=== PATIENT | female | born 1990 | race Caucasian/White ===

== ENCOUNTER 2019-04-16 18:04 | Emergency (ER) | payer SELFPAY ==
[2019-04-16] MEDS ORDERED: NORMAL SALINE 1000 ML 1,000 ML IV ONE (18:43)
[2019-04-16] MEDS ORDERED: MORPHINE SULFATE 10 MG/ML INJ IV ONE (18:43)
[2019-04-16] MEDS ORDERED: ONDANSETRON HCL INJ/PF 4 MG/2 ML SDV IV ONE (18:43)
[2019-04-16 18:45] LABS: ABSOLUTE BASOPHILS # (AUTO) 0.1 10^3/uL (0.0-0.2); ABSOLUTE EOSINOPHILS # (AUTO) 0.2 10^3/uL (0.0-0.6); ABSOLUTE LYMPHOCYTES (AUTO) 2.3 10^3/uL (0.5-4.7); ABSOLUTE MONOCYTES (AUTO) 1.2 10^3/uL (0.1-1.4); ABSOLUTE NEUT (AUTO) 15.8 10^3/uL (1.7-8.2); BASOPHILS % (AUTO) 0.4 % (0-2); EOSINOPHILS % (AUTO) 1.1 % (0-6); HEMATOCRIT 43.9 % (36.0-47.0); HEMOGLOBIN 14.9 g/dL (12.0-15.5); LYMPHOCYTES % (AUTO) 11.6 % (13-45); MEAN CORPUSCULAR HEMOGLOBIN 28.4 pg (27.0-33.4); MEAN CORPUSCULAR HGB CONC 33.9 g/dL (32.0-36.0); MEAN CORPUSCULAR VOLUME 84 fl (80-97); MONOCYTES % (AUTO) 6.2 % (3-13); PLATELET COUNT 314 10^3/uL (150-450); RED BLOOD COUNT 5.23 10^6/uL (3.72-5.28); RED CELL DISTRIBUTION WIDTH 13.6 % (11.5-14.0); SEGMENTED NEUTROPHILS % (AUTO) 80.7 % (42-78); TOTAL CELLS COUNTED % (AUTO) 100 %; WHITE BLOOD COUNT 19.6 10^3/uL (4.0-10.5)
[2019-04-16 19:05] LABS: ALBUMIN 4.3 g/dL (3.5-5.0); ALKALINE PHOSPHATASE 87 U/L (38-126); ANION GAP 10 (5-19); ASPARTATE AMINO TRANSFERASE 34 U/L (14-36); BILIRUBIN,DIRECT 0.3 mg/dL (0.0-0.4); BILIRUBIN,TOTAL 0.7 mg/dL (0.2-1.3); BLOOD UREA NITROGEN 16 mg/dL (7-20); CALCIUM 9.5 mg/dL (8.4-10.2); CARBON DIOXIDE 25 mmol/L (22-30); CHLORIDE 103 mmol/L (98-107); GLUCOSE 122 mg/dL (75-110); TOTAL PROTEIN 7.2 g/dL (6.3-8.2)
--- NOTE | 2019-04-16 19:12 | ER Document Report ---
Entered by LI CLEVELAND SCRIBE 04/16/19 1843 Acting as scribe for:RAMANDEEP MADDEN MD ED GI/ - General Chief Complaint: Abdominal Pain Stated Complaint: ABDOMINAL CRAMPS Time Seen by Provider: 04/16/19 18:35 Mode of Arrival: Ambulatory Information source: Patient Notes: 29 year old female that presents to the emergency department today with complaints of vaginal bleeding with associated abdominal cramping. Patient states the bleeding started x2 days ago with only mild cramping. The cramping has become more severe and the bleeding has become heavier since onset. Patient reports the bleeding is dark red with large amounts of clotting. Patient states she has not had a period in 14 years, since age 15, without explanation. Patient reports she has never been worked up for why this is happening. Patient denies a history of PCOS. TRAVEL OUTSIDE OF THE [place] IN LAST 30 DAYS: No - Related Data Allergies/Adverse Reactions: No Known Allergies Allergy (Verified 04/16/19 18:05) Past Medical History - General Information source: Patient - Social History Smoking Status: Current Every Day Smoker Cigarette use (# per day): Yes - 1/2 ppd Frequency of alcohol use: None Drug Abuse: None Occupation: [employer] Lives with: Family Family History: Reviewed & Not Pertinent - Immunizations Hx Diphtheria, Pertussis, Tetanus Vaccination: Yes Review of Systems - Review of Systems Constitutional: No symptoms reported EENT: No symptoms reported Cardiovascular: No symptoms reported Respiratory: No symptoms reported Gastrointestinal: See HPI, Abdominal pain, Nausea, Vomiting Genitourinary: No symptoms reported Female Genitourinary: See HPI, Vaginal bleeding Musculoskeletal: No symptoms reported Skin: No symptoms reported Hematologic/Lymphatic: No symptoms reported Neurological/Psychological: No symptoms reported -: Yes All other systems reviewed and negative Physical Exam - Vital signs Vitals: Temp Pulse Resp BP Pulse Ox 97.7 F 91 25 H 144/89 H 100 04/16/19 18:10 04/16/19 18:10 04/16/19 18:10 04/16/19 18:10 04/16/19 18:10 - Notes Notes: Physical Exam: General: Alert, appears uncomfortable. HEENT: Normocephalic. Atraumatic. PERRL. Extraocular movements intact. Oropharynx clear. Neck: Supple. Non-tender. Respiratory: No respiratory distress. Clear and equal breath sounds bilaterally. Cardiovascular: Regular rate and rhythm. Abdominal: Morbidly obese. Suprapubic abdominal tenderness with palpation. No distension. Normal Bowel Sounds. Back: Non-tender. No deformity or step off. Extremities: Moves all four extremities. Upper extremities: Normal inspection. Normal ROM. Lower extremities: Normal inspection. No edema. Normal ROM. Neurological: Normal cognition. AAOx4. Normal speech. Psychological: Normal affect. Normal Mood. Skin: Warm. Dry. Normal color. Course - Vital Signs Vital signs: Temp Pulse Resp BP Pulse Ox 97.7 F 91 25 H 144/89 H 100 04/16/19 18:10 04/16/19 18:10 04/16/19 18:10 04/16/19 18:10 04/16/19 18:10 - Laboratory Result Diagrams: 04/16/19 18:32 04/16/19 18:32 Laboratory results interpreted by me: 04/16/19 04/16/19 18:32 18:32 WBC 19.6 H Seg Neutrophils % 80.7 H Lymphocytes % 11.6 L Absolute Neutrophils 15.8 H Glucose 122 H - Diagnostic Test Radiology reviewed: Image reviewed, Reports reviewed - Ultrasound shows endometrial stripe 1.3 cm, complex fluid in the uterus consistent with blood. Discharge - Discharge Clinical Impression: Pelvic cramping, Dysfunctional uterine bleeding Condition: Stable Disposition: HOME, SELF-CARE Additional Instructions: There is no clear explanation for the bleeding and cramping you are having today. Your ultrasound shows a thickened endometrium with blood in the uterus. Your physical exam shows what appears to be tissue in the cervical os. Take ibuprofen 800 mg every 8 hours for pelvic pain and cramps. Take medication as dispensed tonight for pain that is not controlled with the ibuprofen. [facility] Thursday to schedule an appointment for Thursday or Thursday. RETURN TO THE EMERGENCY ROOM IF ANY NEW OR WORSENING SYMPTOMS. Referrals: [facility] [Provider Group] - 04/18/19 Scribe Attestation: 04/16/19 19:12 I personally performed the services described in the documentation, reviewed and edited the documentation which was dictated to the scribe in my presence, and it accurately records my words and actions. I personally performed the services described in the documentation, reviewed and edited the documentation which was dictated to the scribe in my presence, and it accurately records my words and actions.
--- NOTE | 2019-04-16 19:36 | RADIOLOGY REPORT (SQ) ---
EXAM DESCRIPTION: U/S NON-OB PELVIS TV W/O DOP COMPLETED DATE/TIME: 04/16/2019 7:23 pm REASON FOR STUDY: LMP 15yrs, severe pelvic cramps with clots COMPARISON: None. TECHNIQUE: Dynamic and static grayscale images acquired of the pelvis via transvaginal approach and recorded on PACS. Additional selected color Doppler and spectral images recorded. LIMITATIONS: None. FINDINGS: UTERUS: Contour normal. No mass. ENDOMETRIAL STRIPE: Normal thickness demonstrating heterogeneous echogenicity. At least 1 image demo nstrates blood flow within the endometrium. CERVIX: No nabothian cysts. RIGHT OVARY AND DOPPLER: Normal size. No worrisome masses. Normal arterial vascular flow without evid ence for torsion. LEFT OVARY AND DOPPLER: Ovary not visualized. FREE FLUID: None noted. OTHER: No other significant finding. MEASUREMENTS: UTERUS: 10.8 x 4.4 x 4.2 cm ENDOMETRIAL STRIPE: 1.3 cm RIGHT OVARY: 3.1 x 2.8 x 2.8 cm LEFT OVARY: Not visualized. IMPRESSION: Given patient's presenting symptoms, heterogeneous appearing endometrium likely represen ts blood products. The appearance of possible blood flow within the endometrium may represent an end ometrial polyp. The left ovary is not visualized. TECHNICAL DOCUMENTATION: JOB ID: [id number] [employer]- All Rights Reserved Rev Reading location - IP/workstation name: [email or web address]
[2019-04-16] MEDS ORDERED: KETOROLAC TROMETHAMINE INJ/PF 30 MG/1 ML SDV IV ONE (20:02)
[2019-04-16] MEDS ORDERED: HYDROCODONE/ACETAMINOPHEN 5-325 MG (6 TAB/ER DISP) PO PRN (20:59)
[2019-04-16 21:18] LABS: APPEARANCE,URINE CLEAR; BILIRUBIN,URINE NEGATIVE (NEGATIVE); COLOR,URINE YELLOW; GLUCOSE, URINE NEGATIVE (NEGATIVE); KETONES,URINE TRACE mg/dL (NEGATIVE); LEUKOCYTE ESTERASE,URINE NEGATIVE (NEGATIVE); NITRITE,URINE NEGATIVE (NEGATIVE); PROTEIN,URINE NEGATIVE (NEGATIVE); UROBILINOGEN,URINE NEGATIVE mg/dL (<2.0)
[2019-04-16 21:26] VITALS: BP 125/78
== END 2019-04-16 21:26 | disposition home or self-care (01) ==
LOC: ER 18:04
DX: N93.8 Other specified abnormal uterine and vaginal bleeding (principal); R10.2 Pelvic and perineal pain; R10.9 Unspecified abdominal pain; F17.210 Nicotine dependence, cigarettes, uncomplicated
CPT/HCPCS: 99284; 96361; 96374; 96375; 36415; 83690; 84703; 85025; 80053; 81001; 76830; J1885; J2270; J2405; J7030

== ENCOUNTER → 2020-01-17 | Outpatient (CLI) | payer SELFPAY ==
--- NOTE | 2020-01-17 15:18 | RADIOLOGY REPORT (SQ) ---
EXAM DESCRIPTION: U/S [id number] TRNABD 1GES W/ODOP IMAGES COMPLETED DATE/TIME: 01/17/2020 3:08 pm REASON FOR STUDY: Z34.01 ENCNTR FOR SUPRVSN OF NORMAL FIRST PREG, FIRST TRIMESTER Z34.01 ENCNTR FOR SUPRVSN OF NORMAL FIRST PREG, FIRST TRIMES COMPARISON: None. TECHNIQUE: Transabdominal static and realtime grayscale images acquired of the pelvis. Additional se lected spectral and color Doppler images recorded. All images stored on PACs. bHCG: Not available. CLINICAL DATES: 12 weeks 0 days. LIMITATIONS: None. FINDINGS: FETUS: Single Living intrauterine . ULTRASOUND EGA: 11 weeks 2 days. ULTRASOUND RADHIKA: 08/05/2020 EFW: Not applicable less than 20 weeks. CRL: Visualized. FHR: 171. Beats per minute. SURVEY: Too early to assess. AMNIOTIC FLUID: Adequate amount. PLACENTA: Not yet developed due to early gestation. SUBCHORIONIC BLEED: No. SIZE OF BLEED: Not applicable. UTERUS: No masses. No anomalies. CERVICAL LENGTH: 2.6 cm. Closed. RIGHT ADNEXA: Normal ovary with normal vascular flow. No adnexal free fluid. No adnexal masses. LEFT ADNEXA: Ovary not identified due to poor acoustical window. No adnexal free fluid. No adnexal masses. FREE FLUID: None. OTHER: No other significant finding. IMPRESSION: LIVING INTRAUTERINE . EGA 11 WEEKS 2 DAYS. Trimester of : First trimester - 0 to 13 weeks. TECHNICAL DOCUMENTATION: JOB ID: [id number] 2010 [employer]- All Rights Reserved Reading location - IP/workstation name: [email or web address]
== END ==
LOC: RAD 14:30
PROVIDERS: ATTEND Midwife
DX: Z34.01 Encounter for supervision of normal first pregnancy, first trimester (principal)
CPT/HCPCS: 76801

== ENCOUNTER → 2020-03-13 | Outpatient (CLI) | payer SELFPAY ==
--- NOTE | 2020-03-13 14:34 | RADIOLOGY REPORT (SQ) ---
EXAM DESCRIPTION: U/S OB 14+ TRNABD 1GES W/O DOP IMAGES COMPLETED DATE/TIME: 03/13/2020 1:51 pm REASON FOR STUDY: ENCTR FOR SUPERVISION OF NORMAL FIRST , 2ND TRIMESTER (Z34.02) Z34.02 EN CNTR FOR SUPRVSN OF NORMAL FIRST PREG, SECOND TRIME COMPARISON: None. TECHNIQUE: Static and Dynamic grayscale imaging performed of gravid uterus using transabdominal appr oach. Additional selected color Doppler and spectral images recorded. All stored on PACS. LIMITATIONS: None. FINDINGS: FETUSES SEEN:1 EGA: 19 weeks 2 days Calculated using BPD,FL,HC,AC documented on images. 5 days discrepancy with zaire es RADHIKA: 08/05/2020 EFW: 297+/- 44 grams PERCENTILE: Not applicable. Fetus less than or equal to 20 weeks gestation. LVP: 4.1 x 5.3 cm PLACENTA: Posterior grade 1 PRESENTATION: Cephalic. ANATOMY: HEART RATE: 160 beats per minute. FOUR CHAMBER HEART: Visualized. THREE VESSEL CORD: Yes. CORD INSERTION: Visualized. KIDNEYS AND BLADDER: Visualized. Appear normal. STOMACH: Visualized. Appears normal. SPINE: Normal as visualized. BRAIN AND LATERAL VENTRICLES: Visualized. Appear normal. OTHER: No other significant finding. MATERNAL ADNEXA: Maternal ovaries not visualized. CERVICAL LENGTH: 2.6 cm. Closed. OTHER: No other significant finding. IMPRESSION: LIVING INTRAUTERINE . ESTIMATED GESTATIONAL AGE 19 weeks 2 days NO VISUALIZED ANOMALIES. Trimester of : Second trimester - 13 weeks 1 day to 27 weeks 6 days. TECHNICAL DOCUMENTATION: JOB ID: [id number] 2010 [email or web address]- All Rights Reserved Reading location - IP/workstation name: [email or web address]
== END ==
LOC: RAD 12:59
PROVIDERS: ATTEND Midwife
DX: Z34.02 Encounter for supervision of normal first pregnancy, second trimester (principal); Z3A.19 19 weeks gestation of pregnancy
CPT/HCPCS: 76805

== ENCOUNTER 2020-08-08 11:06 | Outpatient (CLI) | payer MEDICAID ==
--- NOTE | 2020-08-08 11:56 | Non Stress Test Report ---
Non Stress Test Datetime Report Generated by CPN: 08/08/2020 11:56 INDICATION Indication for Study (NST) Other: Repeat NST from [facility] VITAL SIGNS Temperature - NST: 97.8 Pulse - NST: 80 RESP - NST: 16 NBPSYS NST: 130 NBPDIA NST: 78 MONITORING Monitor Explained: Monitor Explained; Test Explained; Patient Verbalized Understanding Time on Monitor: 08/08/2020 11:18 Time off Monitor: 08/08/2020 11:44 NST Duration: 26 NST INTERVENTIONS NST Interventions: PO Hydration Physician Notified NST: C. Kapoor, CNM BABY A: [id number] BABY A Movement : Present Contraction Frequency : None FHR Baseline : 130 Accelerations : 15X15 Decelerations : None Variability : Moderate 6-25bpm NST Review: Meets Criteria for Reactive NST NST Review and Verified By : Emmie Connor RN NST Results: Reactive NST REPORT Report Trigger: Send Report
== END 2020-08-08 11:47 | disposition home or self-care (01) ==
LOC: LC 11:06
PROVIDERS: ATTEND Obstetrics & Gynecology
DX: O47.1 False labor at or after 37 completed weeks of gestation (principal); Z3A.39 39 weeks gestation of pregnancy
CPT/HCPCS: 59025

== ENCOUNTER 2020-08-08 19:27 | Inpatient (IN) | payer MEDICAID ==
[2020-08-08] MEDS ORDERED: DINOPROSTONE 10 MG VAGINAL INSERT.SR PV PRN (19:43)
[2020-08-08] MEDS ORDERED: RINGERS SOLUTION,LACTATED 1,000 ML IV ONE (19:43)
--- NOTE | 2020-08-08 20:00 | Admission Physical ---
Datetime Report Generated by CPN: 08/08/2020 19:59 CURRENT ADMISSION Chief Complaint: Scheduled Induction of Labor Indication for Induction: Post Dates Admit Impression : Postterm, Intrauterine Admit Plan: Admit to Unit ALLERGIES Medication Allergies: No Medication Allergies: No Known Allergies (08/08/2020) Latex: No Latex Allergies OBSTETRICAL HISTORY EDC: 07/31/2020 00:00 : 1 Para: 0 Term: 0 : 0 SAB: 0 IAB: 0 Ectopic: 0 Livin Cesareans: 0 VBACs: 0 Multiple Births: 0 PHYSICAL EXAM General: Normal HEENT: Normal Neurologic: Normal Thyroid: Normal Heart: Normal Lungs: Normal Breast: Deferred Back: Normal Abdomen: Normal Genitourinary Exam: Normal Extremities: Normal DTRs: Normal Pelvic Type: Adequate Vital Signs: Reviewed VAGINAL EXAM Dilatation: 0 Effacement: 0 Station: -2 FETUS A EGA: 41.1 Monitoring: External US FHR- Baseline: 130 Variability: Moderate 6-25bpm Decelerations: None FHR Category: Category I Presentation: Vertex Admit Comment: Admit for induction of labor INFORMED CONSENT Signature: with User ID: [email or web address]
[2020-08-08] MEDS: RINGERS SOLUTION,LACTATED 1,000 ML IV PRN (20:10)
[2020-08-08] MEDS ORDERED: LIDOCAINE 1% INJ-PF (10 MG/ML) 30 ML SDV ONE (20:35)
[2020-08-08] MEDS ORDERED: OXYTOCIN/0.9 % SODIUM CHLORIDE 30 UNIT/500 ML RTUINJ ONE (20:35)
[2020-08-08] MEDS ORDERED: OXYTOCIN 10 UNIT/ML VIAL ONE (20:35)
[2020-08-08] MEDS ORDERED: MISOPROSTOL 0.2 MG TABLET ONE (20:35)
[2020-08-08] MEDS ORDERED: DINOPROSTONE 10 MG VAGINAL INSERT.SR ONE (20:35)
[2020-08-08 20:50] LABS: HEMATOCRIT 35.5 % (36.0-47.0); MEAN CORPUSCULAR HGB CONC 33.7 g/dL (32.0-36.0); MEAN CORPUSCULAR VOLUME 83 fl (80-97); PLATELET COUNT 263 10^3/uL (150-450); RED BLOOD COUNT 4.27 10^6/uL (3.72-5.28); RED CELL DISTRIBUTION WIDTH 15.3 % (11.5-14.0); WHITE BLOOD COUNT 17.9 10^3/uL (4.0-10.5)
[2020-08-08 21:05] LABS: APPEARANCE,URINE CLEAR; BILIRUBIN,URINE NEGATIVE (NEGATIVE); COLOR,URINE YELLOW; GLUCOSE, URINE NEGATIVE (NEGATIVE); KETONES,URINE NEGATIVE (NEGATIVE); LEUKOCYTE ESTERASE,URINE NEGATIVE (NEGATIVE); NITRITE,URINE NEGATIVE (NEGATIVE); PROTEIN,URINE NEGATIVE (NEGATIVE); URINE SPECIFIC GRAVITY 1.013; UROBILINOGEN,URINE NEGATIVE mg/dL (<2.0)
[2020-08-08 21:22] LABS: URINE AMPHETAMINES SCREEN NEGATIVE; URINE BARBITURATES SCREEN NEGATIVE; URINE BENZODIAZEPINES SCREEN NEGATIVE; URINE COCAINE SCREEN NEGATIVE; URINE MARIJUANA (THC) SCREEN NEGATIVE; URINE METHADONE SCREEN NEGATIVE; URINE PHENCYCLIDINE SCREEN NEGATIVE
[2020-08-09] MEDS: RINGERS SOLUTION,LACTATED 1,000 ML IV PRN ×4 (03:19→22:59)
[2020-08-09] MEDS ORDERED: OXYTOCIN/0.9 % SODIUM CHLORIDE 30 UNIT/500 ML RTUINJ IV PRN (09:57)
[2020-08-09] MEDS ORDERED: PROMETHAZINE HCL INJ 25 MG/1 ML VIAL ONE (11:44)
[2020-08-09] MEDS ORDERED: NALBUPHINE HCL INJ 10 MG/1 ML AMPULE ONE (11:44)
[2020-08-09] MEDS ORDERED: PROMETHAZINE HCL INJ 25 MG/1 ML VIAL IV ONE (11:47)
[2020-08-09] MEDS ORDERED: NALBUPHINE HCL INJ 10 MG/1 ML AMPULE IV ONE (11:47)
[2020-08-09] MEDS ORDERED: NALBUPHINE HCL INJ 10 MG/1 ML AMPULE IM ONE (11:47)
[2020-08-09 11:56] LABS: ABSOLUTE BASOPHILS # (AUTO) 0.1 10^3/uL (0.0-0.2); ABSOLUTE EOSINOPHILS # (AUTO) 0.3 10^3/uL (0.0-0.6); ABSOLUTE LYMPHOCYTES (AUTO) 1.9 10^3/uL (0.5-4.7); ABSOLUTE MONOCYTES (AUTO) 1.2 10^3/uL (0.1-1.4); ABSOLUTE NEUT (AUTO) 12.5 10^3/uL (1.7-8.2); BASOPHILS % (AUTO) 0.8 % (0-2); EOSINOPHILS % (AUTO) 2.1 % (0-6); HEMATOCRIT 34.7 % (36.0-47.0); HEMOGLOBIN 11.7 g/dL (12.0-15.5); MEAN CORPUSCULAR HGB CONC 33.5 g/dL (32.0-36.0); MEAN CORPUSCULAR VOLUME 84 fl (80-97); MONOCYTES % (AUTO) 7.6 % (3-13); PLATELET COUNT 264 10^3/uL (150-450); RED BLOOD COUNT 4.16 10^6/uL (3.72-5.28); RED CELL DISTRIBUTION WIDTH 15.3 % (11.5-14.0); SEGMENTED NEUTROPHILS % (AUTO) 77.5 % (42-78); TOTAL CELLS COUNTED % (AUTO) 100 %; WHITE BLOOD COUNT 16.1 10^3/uL (4.0-10.5)
[2020-08-09] MEDS ORDERED: EPHEDRINE SULFATE INJ 50 MG/1 ML AMPULE ONE (15:33)
[2020-08-09] MEDS ORDERED: ROPIVACAINE HCL 0.2% INJ/PF (2 MG/ML) 20 ML SDV ONE (15:33)
[2020-08-09] MEDS ORDERED: FENTANYL/BUPIVACAINE/NS/PF 300 MCG/150 ML RTUINJ EPI ONE (15:33)
--- NOTE | 2020-08-09 17:27 | L&D Progress Notes ---
PROGRESS NOTES Datetime Report Generated by CPN: 08/09/2020 17:26 PROGRESS NOTE Impression: Normal Progression of Labor Procedures: Intrauterine Pressure Catheter Plan: Continue Present Management Vital Signs : Reviewed Comment: Pt got epidural, RN trying to reposition to assist with decsent of head but unable to trace contractions d/t body habitus. IUPC placed easliy. Discussed r/b of IUPC with patient. Report to Dr. Griffith unchanged cervix, molding noted. VAGINAL EXAM Dilatation: 0 Effacement: 0 Station: -2 LAST VAGINAL EXAM-NURSING Nursing Exam Dilitation: 4-5 Nursing Exam Effacement: 60 Nursing Exam Station: -2 Nursing Exam Contractions: Edmond schmidt, CNM inserted IUPC FETUS A FHR - Baseline: 140 Variability: Moderate 6-25bpm Accelerations: 15X15 FHR Category: Category I : 41.0 Presentation: Vertex SIGNATURE SIGNATURE: [id number];14,[id number];13,[id number] Assignment: Mayra Griffith MD Signature: with User ID: [email or web address] : with User ID: [email or web address]
[2020-08-10] MEDS ORDERED: CEFAZOLIN 2 GM/D5W RTU 2 GM/50 ML RTUPB IV ONE (06:10)
[2020-08-10] MEDS ORDERED: CITRIC ACID/SODIUM CITRATE ORAL SOLN 15 ML UDCUP ONE (06:10)
[2020-08-10] MEDS ORDERED: AZITHROMYCIN INJ 500 MG VIAL IV ONE (06:15)
[2020-08-10] MEDS ORDERED: OXYTOCIN 10 UNIT/ML VIAL ONE (06:47)
[2020-08-10] MEDS ORDERED: ACETAMINOPHEN 1,000 MG/100 ML RTUPB IV ONE (06:47)
[2020-08-10] MEDS ORDERED: LIDOCAINE 2% INJ-PF (20 MG/ML) 10 ML AMPUL ONE ×2 (06:47→07:33)
[2020-08-10] MEDS ORDERED: FENTANYL CITRATE INJ/PF 100 MCG/2 ML AMPUL ONE ×2 (07:58→08:23)
[2020-08-10] MEDS ORDERED: KETAMINE HCL INJ 500 MG/10 ML VIAL ONE (08:03)
[2020-08-10] MEDS ORDERED: OXYTOCIN/0.9 % SODIUM CHLORIDE 30 UNIT/500 ML RTUINJ IV PRN (08:34)
[2020-08-10] MEDS ORDERED: PROMETHAZINE HCL INJ 25 MG/1 ML VIAL IV PRN (08:34)
[2020-08-10] MEDS ORDERED: SIMETHICONE 80 MG TAB.CHEW PO PRN (08:34)
[2020-08-10] MEDS ORDERED: ACETAMINOPHEN 325 MG TABLET PO PRN (08:34)
[2020-08-10] MEDS ORDERED: OXYCODONE-ACETAMINOPHEN 5-325 MG TABLET PO PRN (08:34)
[2020-08-10] MEDS ORDERED: HYDROMORPHONE HCL INJ/PF 2 MG/ML AMPULE IV PRN (08:34)
[2020-08-10] MEDS ORDERED: RINGERS SOLUTION,LACTATED 1,000 ML IV PRN (08:34)
[2020-08-10] MEDS ORDERED: ACETAMINOPHEN 1,000 MG/100 ML RTUPB IV PRN (08:34)
[2020-08-10] MEDS ORDERED: DIPH/PERTUSS(ACELL)/TETANUS VAC/PF 0.5 ML SYR (>=10YO) IM PRN (08:34)
[2020-08-10] MEDS ORDERED: MEASLES,MUMPS&RUBELLA VACC/PF 0.5 ML VIAL SUBCUT PRN (08:34)
[2020-08-10] MEDS ORDERED: MORPHINE SULFATE 10 MG/ML INJ ONE ×2 (08:35→09:05)
--- NOTE | 2020-08-10 09:00 | Operative Report ---
Operative Report DATE OF SURGERY: 08/10/20 PREOPERATIVE DIAGNOSIS: Arrest of descent. Non-reassuring heart tracing in labor until to augment. Unwanted fertilty POSTOPERATIVE DIAGNOSIS: Same as above OPERATION: Primary section and bilateral tubal ligation SURGEON: DANNY ROUSE ANESTHESIA: Spinal TISSUE REMOVED OR ALTERED: Placenta and bilateral fallopian tubes COMPLICATIONS: Npne ESTIMATED BLOOD LOSS: 750cc INTRAOPERATIVE FINDINGS: Normal appearing uterus, bilateral fallopian tubes and ovaries PROCEDURE: IV fluids: per anesthesia record Urinary output: 300 cc Position: To recovery room in stable condition Description of procedure: The patient was taken to the operating room and spinal anesthesia was administered and found to be adequate. She was then placed on the OR table in the supine position with a slight leftward tilt. Patient was prepped and draped in usual sterile fashion. Ancef 2 gms was given IV prior to the procedure for infection prophylaxis along with azithromycin 500mg. Timeout was taken. A Pfannenstiel skin incision was then made approximately 3 cm above the pubic symphysis and carried down to level the rectus fascia. The rectus fascia was then nicked in the midline with a scalpel and the fascial incision was extended laterally with use of curved Bush scissors. The rectus fascia was then grasped with 2 Kocker clamps elevated and the underlying rectus muscle was dissected off both bluntly and sharply. Any bleeding controlled with cautery. The rectus muscles were then split in the midline and the peritoneum was entered. The peritoneal incision was then extended by manually stretching the peritoneum. The bladder blade was positioned. The bladder was noted to be out of harm's way. A scalpel was then used in the lower uterine for the hysterotomy, slowly until amniotomy was obtained a large amount of fluid was noted. The uterine incision was then manually stretched. The was noted to be in vertex postion but engaged in the pelvis. The head was delivered with some difficulty requiring a hand from assistant hall director through the vagina sterilely and a Kiwi vacuum to assist. The Kiwi was used during 1 push from the assistant hall director giving fundal pressure and no pop offs were encountered.. The shoulders and the rest of the body followed immediately. The cord was cut clamped and the was handed off to the nurse awaiting. was crying prior to hand off. The placenta was manually delivered. Using a lap gauze the uterus was cleared of all clots and debris. The ted retractor was placed and a bladder blade was repositioned. The uterine incision was then closed with 0 Chromic suture in a running locked fashion. A second layer of the same suture was used in a running locked imbricated fashion. The uterine incision was inspected and noted to be hemostatic. Retractor was removed. The posterior aspect of the uterus was then inspected and anatomy was seen as above. The right fallopian tube was identified and traced to the fimbriated end. Portage clamp x2 was used to elevate a segment of the tube where the mesosalpinx appeared free of any vasculature. A Bovie was used to open the mesosalpinx below the Dayanna clamps. A free tie was placed x2 near each Dayanna clamp. Blanching noted and hemostasis. The left f allopian tube was identified and traced to the fimbriated end. Portage clamp x2 was used to elevate a segment of the tube where the mesosalpinx appeared free of any vasculature. A Bovie was used to open the mesosalpinx below the Dayanna clamps. A free tie was placed x2 near each Portage clamp. Blanching noted and hemostasis. The uterus was returned to its normal anatomic position within the abdominal cavity. Warm saline irrigation was used to clear all clots and debris from the abdomen. The uterine incision was inspected once more and noted to remain hemostatic. The bladder blade was removed and the peritoneum was closed with 2-0 chromic in a running fashion. The rectus muscles were then reapproximated and the rectus fascia was closed with a #0 looped PDS in a running fashion. The sub cutaneous tissue was then inspected and any bleeding was controlled with Bovie electrocautery. The subcutaneous tissue was then closed with 2-0 Plain Gut suture in a running fashion. The skin was then closed with 3-0 Monocryl in a running subcuticular fashion. The skin incision was then clean dried and Dermabond was applied over the skin incision. All instrument sponge and needle counts were correct x3 for the procedure the patient tolerated the procedure well. She will proceed to recovery room in stable condition
--- NOTE | 2020-08-10 09:48 | Birth Certificate Data ---
Cert Data Datetime Report Generated by CPN: 08/10/2020 09:48 CERTIFICATE DATA Delivery Provider: Mayra Griffith MD (08/10/2020 08:00:Bianca Katz RN) 47a. Care: Yes (08/08/2020 11:24:Nivia Connor RN) 47b. Date of First Visit: 01/10/2020 00:00 (08/08/2020 11:24:Zara Miguel RN) 47c. Date of Last Visit: 08/08/2020 00:00 (08/08/2020 11:24:Zara Miguel RN) 47d. Number of Visits: 14 (08/08/2020 11:24:Zara Miguel RN) 48a. Number of Prev Live Births: 0 (08/08/2020 11:24:Nivia Connor RN) 48b. Now Livin (08/08/2020 11:24:Mary Kay Irwin RN) 48c. Live Births Now : 0 (08/08/2020 11:24:QS system process) 48e. Losses: 0 (08/08/2020 11:24:Nivia Connor RN) RISK FACTORS IN THIS 49a. Diabetes: No (08/08/2020 11:24:Zara Miguel RN) 49b. Hypertension: No (08/08/2020 11:24:Zara Miguel RN) 49c. Previous Births: 0 (08/08/2020 11:24:Mary Kay Irwin RN) 49d. Stillborns: No (08/08/2020 11:24:Zara Miguel RN) 49d. IUGR: No (08/08/2020 11:24:Zara Miguel RN) 49e. Infertility Treatment: No (08/08/2020 11:24:Zara Miguel RN) 49f. Previous Cesareans: 0 (08/08/2020 11:24:Nivia Connor RN) Mother's Height 50b. Height Inches: 65 (08/08/2020 19:42:QS system process) Mother's Weight 51a. Pre- Weight (lbs): 288 (08/08/2020 11:24:Nivia Connor RN) 51b. Weight at Delivery (lbs): 312 (08/09/2020 14:05:QS system process) 52. Dt Last Normal Menses Began: 10/25/2019 00:00 (08/08/2020 11:24:December GRIS Ravi) Infections Present/Treated 53a. Gonorrhea: Yes (08/08/2020 11:24:Zara Miguel RN) Results this Hospital Visit : Negative (08/08/2020 11:24:Mary Kay Irwin RN) 53b. Syphilis: No (08/08/2020 11:24:Zara iMguel RN) Results this Hospital Visit: NONREACTIVE (08/08/2020 20:39:QS system process) 53c. Chlamydia: Yes (08/08/2020 11:24:Zara Miguel RN) Results this Hospital Visit: Negative (08/08/2020 11:24:Mary Kay Irwin RN) 53d. Hepatitis B: No (08/08/2020 11:24:Zara Miguel RN) Results this Hospital Visit: Negative (08/08/2020 11:24:Nivia Connor RN) 53e. Hepatitis C: Negative (08/08/2020 11:24:Nivia Connor RN) 53h. Mother Tested for HBsAG: Yes (08/08/2020 11:24:Nivia Connor RN) 53i. Date Tested: 01/24/2020 00:00 (08/08/2020 11:24:Nivia Connor RN) 53j. Test Result: Negative (08/08/2020 11:24:Nivia Connor RN) Obstetric Procedures 54a, b, c. Obstetric Procedures: Ultrasound; NST (08/08/2020 11:24:Zara Miguel RN) Cigarette Smoking Cigarette Smoking: Never Smoker. [id number] (08/08/2020 11:24:Zara Miguel RN) 55a. 3 Months Before Preg - Ci (08/08/2020 11:24:December GRIS Ravi) 55b. 1st Trimester of Preg- Ci (08/08/2020 11:24:December GRIS Ravi) 55c. 2nd Trimester of Preg- Ci (08/08/2020 11:24:Paige Ravi RN) 55d. 3rd Trimester of Preg- Ci (08/08/2020 11:24:Paige Ravi RN) Onset of Labor 56a. PROM >12 Hrs: 18.28 (08/08/2020 11:24:QS system process) 57a. Induction of Labor: Induction (08/08/2020 11:24:Paige Ravi RN) 57a. Induction of Labor: Cervidil (08/08/2020 20:50:Zara Miguel RN) 57c. Non-Vertex Presentation A: Vertex (08/08/2020 11:24:Mayra Griffith MD) 57d. Steroids - Lung Mat: None (08/08/2020 11:24:Paige Ravi RN) 57d. Steroids - Lung Mat: Not Applicable (08/08/2020 11:24:Paige Ravi RN) 57e. Antibiotics During Labor: 08/10/2020 07:45 (08/08/2020 11:24:Bianca Katz RN) 57f. Mat Chorio or Temp >100.4: 99.2 (08/08/2020 11:24:Bianca Katz RN) 57g. Moderate/Heavy Meconium: Clear (08/09/2020 13:38:Paige Ravi RN) 57h. Intolerance of Labor: Arrest of Descent (08/08/2020 11:24:Mayra Griffith MD) : non-reassuring heart tracing (08/08/2020 11:24:Mayra Griffith MD) : N/A (08/08/2020 11:24:Bianca Katz RN) 57i. Epidural/Spinal Anesthesia: Epidural (08/08/2020 11:24:Paige Ravi RN) Method of Delivery 58a. Forceps - Unsuccessful A: N/A (08/08/2020 11:24:Bianca Katz RN) 58b. Vacuum - Unsuccessful A: Successful (08/08/2020 11:24:Bianca Katz RN) 58c. Presentation at 58c. Presentation at - A : Vertex (08/08/2020 11:24:Mayra Griffith MD) 58c. Presentation at - A : N/A (08/08/2020 11:24:Bianca Katz RN) 58c. Presentation at - A : Cephalic (08/08/2020 11:24:Mayra Griffith MD) Final Route and Method of Del 58d. Baby A Route/Delivery: (08/08/2020 11:24:Mayra Griffith MD) 58e. Trial of Labor Attempted: No (08/08/2020 11:24:Paige Ravi RN) 58e. Trial of Labor Attempted A: N/A (08/08/2020 11:24:Paige Ravi RN) 58e. Trial of Labor Attempted B: N/A (08/08/2020 11:24:Paige Ravi RN) Maternal Morbidity 59b. 3rd or 4th Degree Lacs: None (08/08/2020 11:24:Bianca Katz RN) Birthweight Baby A: 3895 (08/08/2020 11:24:Valerie Gomez, RN) 60a. Pounds : 8 (08/08/2020 11:24:QS system process) 60b. Ounces: 9 (08/08/2020 11:24:QS system process) 61. GA at Delivery Baby A: 41.3 (08/08/2020 11:24:Bianca Sales, RN) : Late Term- 41- 41.6 Weeks (08/08/2020 11:24:QS system process) 62a. 5 Minute Baby A: 9 (08/08/2020 11:24:QS system process)
--- NOTE | 2020-08-10 09:48 | Delivery Summary ---
Del Sum A-C Datetime Report Generated by CPN: 08/10/2020 09:48 DELIVERY PERSONNEL DELIVERY PERSONNEL: [id number] Delivery Doctor:: Mayra Griffith MD NURSE OFFICE:: Edmond Scales CRNA Building Surveyor:: Bianca Katz RN Neonatal Nurse Practitioner:: NAKUL John Nursery Nurse:: Valerie Dyer RN Web Master/PERFUME MAKER: Renetta Nugent CST Web Master/PERFUME MAKER: Lety Alfonso, RN CORRECTIONAL MATERNAL INFORMATION Delivery Anesthesia: Epidural Medications After Delivery: Pitocin 30 Units in 500ml NS/D5W Estimated Blood Loss (ml): 750 Delivery QBL: 590 Maternal Complications: None Provider Comments: See operative report for details LABOR SUMMARY EDC: 07/31/2020 00:00 No. Babies in Womb: 0 Attempted: No Labor Anesthesia: Epidural LABOR INFORMATION Reason for Induction: Post Dates Cervical Ripening Agents: Cervidil Oxytocin: Induction Group B Beta Strep: Negative Antibiotics # of Doses: 2 Antibiotics Time of Last Dose: 08/10/2020 07:45 Name of Antibiotic Given: Ancef 2g and Zithromax 500mg Steroids Given: None Reason Steroids Not Administered: Not Applicable MEMBRANES Membranes Rupture Method: Artificial Rupture of Membranes: 08/09/2020 13:38 Length of Rupture (hr): 18.28 Amniotic Fluid Color: Clear Amniotic Fluid Amount: Large Amniotic Fluid Odor: Normal STAGES OF LABOR Stage 3 hr: 0 Stage 3 min: 2 VAGINAL DELIVERY Episiotomy: None Laceration #1: None Laceration Extension #1: N/A Laceration Repair: Not Applicable Sharps Count Correct: N/A CSECTION DELIVERY Primary Indication: Arrest of Descent Other Primary Indication: non-reassuring heart tracing Secondary Indication: N/A CSection Urgency: Non-Scheduled CSection Incidence: Primary Labor: Labor Elective: Nonelective CSection Incision: Lower Uterine Transverse BABY A INFORMATION Delivery Date/Time: 08/10/2020 07:55 Method of Delivery: Nurse Controlled Delivery: No Born in Route : No : N/A Forceps: N/A Vacuum Extraction: Successful Shoulder Dystocia : No ASSISTED DELIVERY BABY A Indication for Assisted Delivery: Assistance Catheter Prior to Procedure: Yes Station Vacuum/Forcep Apply: 4 Position Vacuum/Forcep Apply: Left Occipital Anterior Vacuum Number of Pulls: 1 Vacuum Number of PopOffs: 0 Reduce Pressure btwn Ctx: Yes Total Time Vacuum Applied: 15 seconds PRESENTATION/POSITION BABY A Presentation: Cephalic Cephalic Presentation: Vertex Vertex Position: Right Occipital Posterior Breech Presentation: N/A PLACENTA INFORMATION BABY A Placenta Delivery Time : 08/10/2020 07:57 Placenta Method of Delivery: Manual Removal Placenta Status: Delivered SCORES BABY A Heart Rate 1 min: >100 bpm Resp Effort 1 min: Good Cry Reflex Irritability 1 min: Cough or Sneeze or Pulls Away Muscle Tone 1 min: Active Motion Color 1 min: Blue/Pale Resuscitation Effort 1 min: Tactile Stimulation SCORE 1 MIN: 8 Heart Rate 5 min: >100 bpm Resp Effort 5 min: Good Cry Reflex Irritability 5 min: Cough or Sneeze or Pulls Away Muscle Tone 5 min: Active Motion Color 5 min: Body [place], Extremities Blue Resuscitation Effort 5 min: N/A SCORE 5 MIN: 9 INFORMATION BABY A Gestational Age at Delivery: 41.3 Gestational Status: Late Term- 41- 41.6 Weeks Outcome : Liveborn Infant Condition : Stable Sex: Male IDENTIFICATION BABY A Infant Verification Date/Time: 08/10/2020 08:01 ID Band Number: [id number] Mother's Name Verified: Yes RN Verifying : M. Sales, RN Additional Verifying Personnel: C. Blanco, RN WEIGHT/LENGTH BABY A Infant Birthweight (gm): 3895 Weight (lb): 8 Infant Weight (oz): 9 Infant Length (in): 20.50 Length (cm): 52.07 CORD INFORMATION BABY A No. Cord Vessels: 3 Nuchal Cord : N/A Cord Blood Taken: Yes-For Eval (Mom's Blood Type - or O+) Suction: Mouth ASSESSMENT BABY A Infant Complications: None Physical Findings at Delivery: Within Normal Limits Infant Respirations: Appears Normal Manager Spa/ALS Called : No Transferred To: Nursery BABY B INFORMATION : N/A SIGNATURES Signature: with User ID: Lala : with User ID: Lala
[2020-08-10] MEDS: DOCUSATE SODIUM 100 MG CAPSULE PO SCH ×2 (12:20→18:07)
[2020-08-10] MEDS: PRENATAL VITAMIN W DHA CAPSULE PO SCH (12:20)
[2020-08-10] MEDS: KETOROLAC TROMETHAMINE INJ/PF 30 MG/1 ML SDV IV SCH ×2 (13:27→21:02)
[2020-08-10] MEDS ORDERED: PHENYLEPHRINE HCL INJ/PF 10 MG/1 ML SDV ONE (14:44)
[2020-08-10] MEDS ORDERED: KETOROLAC TROMETHAMINE 60 MG/2 ML SDV ONE (14:44)
[2020-08-10] MEDS ORDERED: ONDANSETRON HCL INJ/PF 4 MG/2 ML SDV ONE (14:44)
[2020-08-10] MEDS ORDERED: NORMAL SALINE INJ/PF 0.9% 10 ML SDV ONE (14:44)
[2020-08-10] MEDS: OXYCODONE-ACETAMINOPHEN 5-325 MG TABLET PO PRN ×2 (18:07→23:25)
[2020-08-11] MEDS: OXYCODONE-ACETAMINOPHEN 5-325 MG TABLET PO PRN ×2 (03:25→13:01)
[2020-08-11] MEDS: IBUPROFEN 800 MG TABLET PO SCH ×4 (05:27→23:33)
[2020-08-11 07:33] LABS: HEMOGLOBIN 10.5 g/dL (12.0-15.5); MEAN CORPUSCULAR HEMOGLOBIN 29.3 pg (27.0-33.4); MEAN CORPUSCULAR HGB CONC 34.9 g/dL (32.0-36.0); MEAN CORPUSCULAR VOLUME 84 fl (80-97); PLATELET COUNT 224 10^3/uL (150-450); RED BLOOD COUNT 3.56 10^6/uL (3.72-5.28); RED CELL DISTRIBUTION WIDTH 15.3 % (11.5-14.0); WHITE BLOOD COUNT 14.8 10^3/uL (4.0-10.5)
[2020-08-11] MEDS: PRENATAL VITAMIN W DHA CAPSULE PO SCH (09:44)
[2020-08-11] MEDS: DOCUSATE SODIUM 100 MG CAPSULE PO SCH ×2 (09:44→17:56)
--- NOTE | 2020-08-11 12:14 | PDOC PROGRESS REPORT ---
Subjective-OB Progress Note for:: 08/11/20 Subjective: Pt doing well, no complaints. States pain is controlled, voiding w/o difficulty, reg diet, light bleeding w/o clots, and is passing flatus. Physical Exam (OB) Vital Signs: Temp Pulse Resp BP Pulse Ox 97.5 F 82 18 115/67 98 08/11/20 11:02 08/11/20 11:02 08/11/20 11:02 08/11/20 11:02 08/11/20 11:02 Intake & Output 08/10/20 08/11/20 08/12/20 06:59 06:59 06:59 Intake Total 2026 220 Output Total 1025 Balance 2026 1175 - PIH/Pre-Eclampsia DTR's: 2 + Clonus: Negative Headache: Absent Epigastric Pain: No Visual Changes: No - Dressing Removed: No Incision: Dressing Closure Type: Surgical Glue - Maternal Morbidity 59. Maternal Morbidity (serious complications experinced by the mother ass ociated with labor and delivery: None of the above - Lochia Lochia Amount: Small 10-25 ml Lochia Color: Rubra/Red - Abdomen Description: Firm, Soft Hernia Present: No Fundal Description: Firm, Midline Fundal Height: u/u - u/2 Objective-Diagnostic Laboratory: 08/11/20 06:27 08/11/20 06:27 WBC 14.8 H RBC 3.56 L Hgb 10.5 L Hct 30.0 L MCV 84 MCH 29.3 MCHC 34.9 RDW 15.3 H Plt Count 224 Assessment and Plan(PN) - Assessment and Plan (1) Arrest of descent, delivered, current hospitalization Is this a current diagnosis for this admission?: Yes (2) BMI 37.0-37.9, adult Is this a current diagnosis for this admission?: Yes (3) Encounter for induction of labor Is this a current diagnosis for this admission?: Yes (4) Non-reassuring electronic monitoring tracing Is this a current diagnosis for this admission?: Yes (5) Obesity complicating in third trimester Is this a current diagnosis for this admission?: Yes (6) Post term at 41 weeks gestation Is this a current diagnosis for this admission?: Yes (7) S/P primary low transverse Is this a current diagnosis for this admission?: Yes (8) Sterilization Is this a current diagnosis for this admission?: Yes - Time Spent with Patient Time with patient: Less than 15 minutes Medications reviewed and adjusted accordingly: Yes - Disposition Anticipated Discharge Disposition: Home, Self Care Anticipated Discharge Timeframe: within 24 hours
[2020-08-12] MEDS: IBUPROFEN 800 MG TABLET PO SCH ×2 (05:19→12:16)
[2020-08-12] MEDS: PRENATAL VITAMIN W DHA CAPSULE PO SCH (10:12)
[2020-08-12] MEDS: DOCUSATE SODIUM 100 MG CAPSULE PO SCH (10:12)
--- NOTE | 2020-08-12 13:00 | PDOC DISCHARGE SUMMARY ---
Impression - Admit/DC Date/PCP Admission Date/Primary Care Provider: 08/08/20 19:41 KELLIE CAMARA MD Discharge Date: 08/12/20 - Discharge Diagnosis (1) Arrest of descent, delivered, current hospitalization Is this a current diagnosis for this admission?: Yes (2) BMI 37.0-37.9, adult Is this a current diagnosis for this admission?: Yes (3) Encounter for induction of labor Is this a current diagnosis for this admission?: Yes (4) Non-reassuring electronic monitoring tracing Is this a current diagnosis for this admission?: Yes (5) Obesity complicating in third trimester Is this a current diagnosis for this admission?: Yes (6) Post term at 41 weeks gestation Is this a current diagnosis for this admission?: Yes (7) S/P primary low transverse Is this a current diagnosis for this admission?: Yes (8) Sterilization Is this a current diagnosis for this admission?: Yes - Additional Information Resuscitation Status: Full Code Discharge Diet: Regular Discharge Activity: Balance Activity w/Rest, No Lifting Over 10 Pounds, No Lifting/Push/Pulling, Pelvic Rest, Slowly Increase Activity, No tub bath Referrals: KELLIE CAMARA MD [Primary Care Provider] - Home Medications: Calcium Carbonate [Calcium] 600 mg PO DAILY 08/09/20 Vit 10/Iron Fum/Folic [Vitafol-Ob Caplet] 1 each PO DAILY 08/09/20 Valacyclovir HCl [Valtrex 500 mg Tablet] 1 tab PO DAILY 08/09/20 HPI Gestational Age: 41.3 Reason(s) for Admission: Induction of Labor Procedures: NST, Management of Obstetric Complications, Other Procedure(s) Note: FSE, IUPC Intrapartum Procedure(s): : Low Cervical, Transverse Hospital Course 59. Maternal Morbidity (serious complications experinced by the mother associated with labor and delivery: None of the above Results Laboratory Results: WBC 14.8 10^3/uL (4.0-10.5) H 08/11/20 06:27 RBC 3.56 10^6/uL (3.72-5.28) L 08/11/20 06:27 Hgb 10.5 g/dL (12.0-15.5) L 08/11/20 06:27 Hct 30.0 % (36.0-47.0) L 08/11/20 06:27 MCV 84 fl (80-97) 08/11/20 06:27 MCH 29.3 pg (27.0-33.4) 08/11/20 06:27 MCHC 34.9 g/dL (32.0-36.0) 08/11/20 06:27 RDW 15.3 % (11.5-14.0) H 08/11/20 06:27 Plt Count 224 10^3/uL (150-450) 08/11/20 06:27 Lymph % (Auto) 12.0 % (13-45) L 08/09/20 11:34 [place] % (Auto) 7.6 % (3-13) 08/09/20 11:34 Eos % (Auto) 2.1 % (0-6) 08/09/20 11:34 Baso % (Auto) 0.8 % (0-2) 08/09/20 11:34 Absolute Neuts (auto) 12.5 10^3/uL (1.7-8.2) H 08/09/20 11:34 Absolute Lymphs (auto) 1.9 10^3/uL (0.5-4.7) 08/09/20 11:34 Absolute Monos (auto) 1.2 10^3/uL (0.1-1.4) 08/09/20 11:34 Absolute Eos (auto) 0.3 10^3/uL (0.0-0.6) 08/09/20 11:34 Absolute Basos (auto) 0.1 10^3/uL (0.0-0.2) 08/09/20 11:34 Seg Neutrophils % 77.5 % (42-78) 08/09/20 11:34 Urine Color YELLOW 08/08/20 19:45 Urine Appearance CLEAR 08/08/20 19:45 Urine pH 6.0 (5.0-9.0) 08/08/20 19:45 Ur Specific [place] 1.013 08/08/20 19:45 Urine Protein NEGATIVE mg/dL (NEGATIVE) 08/08/20 19:45 Urine Glucose (UA) NEGATIVE mg/dL (NEGATIVE) 08/08/20 19:45 Urine Ketones NEGATIVE mg/dL (NEGATIVE) 08/08/20 19:45 Urine Blood NEGATIVE (NEGATIVE) 08/08/20 19:45 Urine Nitrite NEGATIVE (NEGATIVE) 08/08/20 19:45 Urine Bilirubin NEGATIVE (NEGATIVE) 08/08/20 19:45 Urine Urobilinogen NEGATIVE mg/dL (<2.0) 08/08/20 19:45 Ur Leukocyte Esterase NEGATIVE (NEGATIVE) 08/08/20 19:45 Urine Ascorbic Acid NEGATIVE (NEGATIVE) 08/08/20 19:45 Urine Opiates Screen NEGATIVE 08/08/20 19:45 Urine Methadone Screen NEGATIVE 08/08/20 19:45 Ur Barbiturates Screen NEGATIVE 08/08/20 19:45 Ur Phencyclidine Scrn NEGATIVE 08/08/20 19:45 Ur Amphetamines Screen NEGATIVE 08/08/20 19:45 U Benzodiazepines Scrn NEGATIVE 08/08/20 19:45 Urine Cocaine Screen NEGATIVE 08/08/20 19:45 U Marijuana (THC) Screen NEGATIVE 08/08/20 19:45 RPR NONREACTIVE (NONREACTIVE) 08/08/20 20:39 Blood Type O POSITIVE 08/08/20 20:39 Antibody Screen NEGATIVE 08/08/20 20:39 Plan Plan of Treatment: f/u at [facility] on Thursday for incision check Time Spent: Less than 30 Minutes
[2020-08-12 13:02] VITALS: BP 127/64
== END 2020-08-12 14:36 | disposition home or self-care (01) | DRG 785 ==
LOC: LC 19:27 → LR 19:41 → 2S 08-10 11:04
PROVIDERS: ADMIT Obstetrics & Gynecology; ATTEND Obstetrics & Gynecology
PROC: 10H07YZ Insertion of Other Device into Products of Conception, Via Natural or Artificial Opening (ICD-10-PCS; 2020-08-09)
PROC: 10D00Z1 Extraction of Products of Conception, Low, Open Approach (ICD-10-PCS; principal; 2020-08-10)
PROC: 0UB70ZZ Excision of Bilateral Fallopian Tubes, Open Approach (ICD-10-PCS; 2020-08-10)
DX: O48.0 Post-term pregnancy (principal); O62.1 Secondary uterine inertia; O76 Abnormality in fetal heart rate and rhythm complicating labor and delivery; O99.214 Obesity complicating childbirth; E66.9 Obesity, unspecified; Z37.0 Single live birth; Z3A.41 41 weeks gestation of pregnancy; Z30.2 Encounter for sterilization
CPT/HCPCS: 1967; 1968; 36415; 80307; 81005; 85025; 85027; 86592; 86850; 86900; 86901; 88302; 88307; 94760; 94799; J0131; J0456; J0690; J1885; J2270; J2300; J2370; J2405; J2550; J2590; J2795; J3010; J3490